=== PATIENT | male | born 1995 ===

== ENCOUNTER 2017-11-06 06:58 | Day surgery (SDC) | payer OTHER ==
[2017-11-05 17:19] VITALS: BP 117/71
[2017-11-05 17:36] LABS: BASOPHILS % (AUTO) 0.5 % (0.0-5.0); EOSINOPHILS % (AUTO) 4.9 % (0.0-8.0); HEMATOCRIT 39.8 % (42-54); LYMPHOCYTES % (AUTO) 34.7 % (21.0-51.0); MEAN CORPUSCULAR HEMOGLOBIN 31.6 pg (27.0-33.0); MEAN CORPUSCULAR HGB CONC 34.7 g/dL (32.0-36.0); MEAN CORPUSCULAR VOLUME 91.2 fL (79-99); MONOCYTES % (AUTO) 13.5 % (3.0-13.0); NEUTROPHILS % (AUTO) 46.4 % (40.0-77.0); PLATELET COUNT (AUTO) 241 K/uL (130-400); RED BLOOD CELL COUNT(AUTO) 4.36 MIL/uL (4.50-6.20); RED CELL DISTRIBUTION WIDTH 12.6 % (11.0-15.5); WHITE BLOOD COUNT (AUTO) 4.7 K/uL (4.8-10.8)
[2017-11-06] VITALS (13 sets, daily range): BP systolic 94–127; BP diastolic 42–74
[~2017-11-06] VITALS: Ht 177.8 cm; Wt 79.0 kg
[~2017-11-06 06:58] MED LIST: CEFAZOLIN SODIUM 1 GM VIAL IVP SCH
[2017-11-06] MEDS ORDERED: LACTATED RINGERS 1000ML 1,000 ML IV ONE (08:06)
[2017-11-06] MEDS ORDERED: LIDOCAINE HCL/EPINEPHRINE 50 ML VIAL IJ ONE (08:20)
[2017-11-06] MEDS ORDERED: LIDOCAINE HCL MPF 1% 5ML VIAL ONE (08:29)
[2017-11-06] MEDS ORDERED: DEXAMETHASONE SOD PHOSPHATE 10MG/ML 1ML VIAL ONE (08:29)
[2017-11-06] MEDS ORDERED: SODIUM CHLORIDE 0.9% 10 ML VIAL ONE (08:29)
[2017-11-06] MEDS ORDERED: PHENYLEPHRINE HCL 10 MG/ML 1ML VIAL IV ONE (08:29)
[2017-11-06] MEDS ORDERED: LIDOCAINE HCL 2% JELLY 5 ML ONE (08:29)
[2017-11-06] MEDS ORDERED: LIDOCAINE HCL 4% LTA SOL 4 ML VIAL ONE (08:29)
[2017-11-06] MEDS ORDERED: GLYCOPYRROLATE 0.2 MG/ML 5 ML VIAL ONE (08:29)
[2017-11-06] MEDS ORDERED: LIDOCAINE PF 2% 5ML ABBOJECT ONE (08:29)
[2017-11-06] MEDS ORDERED: PROPOFOL 10 MG/ML 20ML VIAL IV ONE (08:29)
[2017-11-06] MEDS ORDERED: ONDANSETRON HCL MDV 20ML 2 MG/ML VIAL ONE (08:29)
[2017-11-06] MEDS ORDERED: MIDAZOLAM HCL 1 MG/ML 2ML VIAL ONE (08:29)
[2017-11-06] MEDS ORDERED: ROCURONIUM BROMIDE 10MG/1ML 5ML VL ONE (08:29)
[2017-11-06] MEDS ORDERED: NEOSTIGMINE METHYLSULFATE 1MG/ML IV ONE (08:29)
[2017-11-06] MEDS ORDERED: FENTANYL CITRATE PF 50 MCG/1 ML 2ML VIAL ONE (08:30)
[2017-11-06] MEDS ORDERED: MEPERIDINE-PF 25 MG/ML SYG ONE (09:48)
== END 2017-11-06 11:00 | disposition home or self-care (01) ==
LOC: DAH 06:58
PROVIDERS: ATTEND Surgery
DX: T18.0XXA Foreign body in mouth, initial encounter (principal); X58.XXXA Exposure to other specified factors, initial encounter; Y93.89 Activity, other specified; Y92.89 Other specified places as the place of occurrence of the external cause; Y99.9 Unspecified external cause status
CPT/HCPCS: 36415; 40804; 85025; 88300; J1100; J2001; J2175; J2250; J2370; J2704; J2710; J3010; J3490 ×3; J7120